=== PATIENT | female | born 1985 | race American Indian/Alaskan Native ===

== ENCOUNTER 2021-11-24 13:39 | Emergency (ER) | payer OTHER ==
[2021-11-24 14:08] VITALS: BP 121/81
== END 2021-11-25 14:40 | disposition left against medical advice (07) ==
LOC: ED 13:39
DX: R07.9 Chest pain, unspecified (principal); R00.0 Tachycardia, unspecified; Z53.21 Procedure and treatment not carried out due to patient leaving prior to being seen by health care provider